=== PATIENT | male | born 1995 | race Caucasian/White ===

== ENCOUNTER 2024-04-09 20:37 | Emergency (ER) | payer BC, SELFPAY ==
[2024-04-09 20:54] VITALS: BP 129/82; PULSE 67; RESP 18; TEMP 36.7; O2SAT 99; BMI 31.5
--- NOTE | 2024-04-09 20:58 | ED.GENADULT ---
HPI - General Adult General Chief complaint: Skin/Abscess/Foreign Body Stated complaint: swallowed fish bone Time Seen by Provider: 04/09/24 20:58 History of Present Illness HPI narrative: CC: Fish Bone Stuck pt. with possible fish bone stuck in esophagus. able to eat and drink. worried about going to sleep. denies shortness of breath. 29-year-old man presenting to the emergency department with concern of possible fishbone stuck in his esophagus. This evening about 2 hours prior to arrival had been eating walleye and [place]. Had a sensation that maybe he had swallowed a fishbone. It was until afterwards that he started to experience more discomfort. Is not feeling chest pain or shortness of breath/difficulty breathing otherwise. Demonstrates area of discomfort at the level of the larynx. Not actually difficult to swallow. Just has discomfort as noted above. After consultation I believe with a friend, was recommended to be seen in the emergency department Related Data Home Medications ?Medication ?Instructions ?Recorded ?Confirmed No Known Home Medications 04/09/24 04/09/24 Allergies Allergy/AdvReac Type Severity Reaction Status Date / Time azithromycin [From Zithromax] Allergy Mild Rash Verified 04/09/24 20:56 Review of Systems Status of ROS: Reports: 6 or more systems reviewed and unremarkable except as noted in History and below PFSH [facility] Social History Smoking Status: Never smoker Second hand tobacco smoke exposure: No How often do you have a drink containing alcohol: never AUDIT-C Alcohol total score: 0 Non-prescribed substance use: denies use Exam Narrative: Exam Narrative: Very pleasant. NAD. Reading when I enter the room. Breathing easily. There is no stridor. Lungs appear to be clear. Heart in regular rate and rhythm. Oropharyngeal exam is with some cobblestoning of the posterior oropharynx but I do not see any indication of injury otherwise. Of course where he has the sensation would be beyond what I can visualize without much more difficulty. Const: Vital Signs, click to edit/add: Vital Signs - 24 hr 04/09/24 20:54 Temperature 98.0 F Pulse Rate [Right Pulse Oximeter] 67 Respiratory Rate 18 Blood Pressure [Ri ght Upper Arm] 129/82 Pulse Oximetry 99 Oxygen Delivery Me thod Room Air Documenting provider has reviewed patient's vital signs: yes Course Vital Signs Vital signs: Initial Vital Signs Temperature 98.0 F 04/09/24 20:54 Temperature Source Temporal Artery Scan 04/09/24 20:54 Pulse Rate 67 04/09/24 20:54 Respiratory Rate 18 04/09/24 20:54 Blood Pressure 129/82 04/09/24 20:54 Blood Pressure Mean 97 04/09/24 20:54 Blood Pressure Position Sitting 04/09/24 20:54 Pulse Oximetry 99 04/09/24 20:54 Oxygen Delivery Method Room Air 04/09/24 20:54 Vital Signs Temperature 98.0 F 04/09/24 20:54 Pulse Rate 67 04/09/24 20:54 Respiratory Rate 18 04/09/24 20:54 Blood Pressure 129/82 04/09/24 20:54 Pulse Oximetry 99 04/09/24 20:54 Oxygen Delivery Method Room Air 04/09/24 20:54 Temperature 98.0 F 04/09/24 22:06 Pulse Rate 70 04/09/24 22:06 Respiratory Rate 18 04/09/24 22:06 Blood Pressure 125/74 04/09/24 22:06 Pulse Oximetry 99 04/09/24 22:05 Oxygen Delivery Method Room Air 04/09/24 22:05 Medical Decision Making MDM Narrative Medical decision making narrative: Discussed potential options for treatment. I would suspect globus or certainly could be a small stock fishbone. Would not appear to have any airway compromise. Could do chest x-ray looking for pneumothorax or pneumomediastinum. X-ray imaging otherwise would probably not be very helpful. I do not think has symptoms at this moment that would warrant sedation for a scope. Discussed with ENT on-call to arrange for close follow-up if symptoms continue. See patient discharge plan for further discussion Discharge Plan Discharge Clinical Impression: Globus sensation Patient Disposition: Home, Self-Care Condition: Stable Additional Instructions: No restrictions at this time. Return for marked increase in throat pain or swelling or chest pain. If symptoms persist tomorrow please call to the [facility] at phone number [phone] to be put on the same day ENT schedule in [place] for Dr. Mackay. Alternatively if necessary, could show up at the [facility] ([facility]) at noon tomorrow. Prescriptions: No Action No Known Home Medications Follow Up/Referrals: Provider,Not a Local [Primary Care Provider] - Stand Alone Forms: [employer] Info Instructions
[2024-04-09 22:05] VITALS: BP 125/74; PULSE 70; RESP 18; TEMP 36.7; O2SAT 99
[2024-04-09 22:06] VITALS: BP 125/74; PULSE 70; RESP 18; TEMP 36.7
== END 2024-04-09 22:06 | disposition home or self-care (01) ==
PROVIDERS: Emergency Provider Family Medicine
DX: R09.A2 Foreign body sensation, throat (principal)
CPT/HCPCS: 99283; 99284